=== PATIENT | female | born 1995 ===

== ENCOUNTER 2021-05-02 18:11 | Emergency (ER) | payer OTHER ==
[~2021-05-02] VITALS: Ht 170.2 cm; Wt 95.5 kg
[2021-05-02 18:20] VITALS: BP 130/80
== END 2021-05-02 19:28 | disposition home or self-care (01) ==
LOC: EMS 18:17
DX: R43.8 Other disturbances of smell and taste (principal); Z20.822 Contact with and (suspected) exposure to COVID-19
CPT/HCPCS: 99283; U0003